=== PATIENT | female | born 1945 | race African-American/Black ===

== ENCOUNTER 2020-07-26 13:34 | Outpatient (CLI) | payer MEDICARE, OTHER, SELFPAY ==
--- NOTE | ~2020-07-26 | US_ITS ---
US pelvic complete w TV DATE: 07/26/2020 14:32 INDICATION: Episode of postmenopausal vaginal bleeding TECHNIQUE: Real-time imaging via transabdominal and transvaginal approaches COMPARISON: None FINDINGS: The uterus is atrophic, measuring 5.6 cm height, 2.6 cm transverse and 9 mm AP dimension. No pelvic mass lesion or abnormal pelvic fluid collection is evident. The ovaries are not visualized. IMPRESSION: Atrophied uterus; ovaries not identified No pelvic mass or abnormal pelvic fluid collection is identified Reviewed, dictated and finalized at [facility]. Reviewed, dictated and finalized at [facility]. [employer]
== END 2020-07-26 13:35 | disposition home or self-care (01) ==
LOC: ANHIMG 13:40
PROVIDERS: Visit Provider Obstetrics & Gynecology
DX: N85.8 Other specified noninflammatory disorders of uterus (principal)
CPT/HCPCS: 76830; 76856